=== PATIENT | female | born 1980 | race Caucasian/White ===

== ENCOUNTER 2016-11-18 21:49 | Emergency (ER) | payer SELFPAY ==
[~2016-11-18] VITALS: Ht 157.5 cm; Wt 73.0 kg
[2016-11-18 21:59] VITALS: Ht 157.5 cm; Wt 73.0 kg
[2016-11-18] MEDS ORDERED: SOD CHLORIDE 0.9% 1,000 ML IV STA (22:41)
[2016-11-18] MEDS ORDERED: ACETAMINOPHEN 325 MG TAB PO STA (22:41)
[2016-11-18 23:28] LABS: ADD SCAN DIFF NO
[2016-11-18 23:32] LABS: BASOPHIL # 0.1 10^3/ul (0.0-0.1); BASOPHILS % 0.4 % (0.0-2.0); EOSINOPHILS # 0.2 10^3/ul (0.0-0.5); EOSINOPHILS % 1.3 % (0.0-7.0); LYMPHOCYTES # 2.5 10^3/ul (0.8-2.9); LYMPHOCYTES % 20.3 % (15.0-51.0); MEAN CORPUSCULAR HEMOGLOBIN 28.8 pg (29.0-33.0); MEAN CORPUSCULAR HGB CONC 32.6 g/dl (32.0-37.0); MEAN CORPUSCULAR VOLUME 88.5 fl (82.0-101.0); MEAN PLATELET VOLUME 11.4 fl (7.4-10.4); MONOCYTES % 7.9 % (0.0-11.0); NEUTROPHIL # 8.5 10^3/ul (1.6-7.5); NEUTROPHILS % 69.9 % (39.0-77.0); PLATELET COUNT 272 10^3/UL (140-415); RED BLOOD COUNT 4.86 10^6/ul (4.20-5.40); WHITE BLOOD COUNT 12.2 10^3/ul (4.8-10.8)
[2016-11-18 23:41] LABS: ADD UMIC YES; URINE BILIRUBIN (Dip) NEGATIVE (NEGATIVE); URINE BLOOD (Dip) 3+ (NEGATIVE); URINE COLOR YELLOW (YELLOW); URINE GLUCOSE (Dip) NEGATIVE (NEGATIVE); URINE KETONES (Dip) NEGATIVE (NEGATIVE); URINE LEUKOCYTE ESTERASE (Dip) NEGATIVE (NEGATIVE); URINE NITRITE (Dip) NEGATIVE (NEGATIVE); URINE TOTAL PROTEIN (Dip) NEGATIVE (NEGATIVE); URINE UROBILINOGEN (Dip) 0.2 E.U./dL (0.1-1.0)
[2016-11-18 23:54] LABS: BACTERIA,URINE MANY; SQUAMOUS EPITHELIAL CELL,UR MODERATE
--- NOTE | 2016-11-19 00:21 | RADRPT ---
PROCEDURE: Obstetrical ultrasound. CLINICAL INDICATION: Vaginal bleeding. TECHNIQUE: Multiple sonographic images of the pelvis were obtained with transabdominal technique. Images were obtained with calix scale and color Doppler. COMPARISON: No prior studies are available for comparison. FINDINGS: There are two uterine fibroids measuring 2.8 x 2.9 x 2.9 cm and 1.5 x 1.5 x 1.6 cm. There is an intr auterine gestational sac with a pole identified. heart tones of 139 beats per minute are identified. The crown-rump length averages 2.12 cm, compatible with 8 weeks and 5 days. The m jasmin sac diameter averages 3.13 cm, compatible with 8 weeks and 1 day. A yolk sac is identified. Ther e is a small subchorionic collection is identified. There is no pelvic free fluid. Bilateral ovaries are not visualized. There is no suspicious adnexal mass identified. IMPRESSION: Single live intrauterine with an estimated gestational age of 8 weeks and 3 days, with an ultrasound JAMISON of 06/27/2017. Small subchorionic hemorrhage. Uterine fibroids. Bilateral ovaries not visualized. .Dick Fernandez MD, MD Date Time Electronically viewed and signed by .Dick Fernandez MD, MD on 11/19/2016 00:21 .T/
[2016-11-19] MEDS ORDERED: ACET325T33 PO (00:27)
[2016-11-19 00:35] VITALS: BP 112/62; PULSE 72; RESP 18; TEMP 98.6
--- NOTE | 2016-11-19 02:08 | ERD ---
ER Documentation Chief Complaint Date/Time DATE: 11/19/16 TIME: 02:06 Chief Complaint vaginal bleeding x 1 hour, states 9 weeks HPI This patient is a 36-year-old female who is currently 9 weeks presenting to the emergency department for vaginal bleeding for the past hour. The patient states she had mild spotting on 1 pad. Last sexual activity was 1 month ago. 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 Additionally the patient has had suprapubic pain bilaterally but worse on the right side. She states his pain is mild. The patient has had no fevers , chills, nausea, vomiting, diarrhea, or other symptoms at this time. The patient has taken no medication for relief of symptoms. ROS All systems reviewed and are negative except as per history of present illness. Medications Home Meds Active Scripts Acetaminophen* (Tylenol*) 325 Mg Tablet, 2 TAB PO Q6 Y for PAIN AND OR ELEVATED TEMP, #20 TAB Prov:CHRISTIE SANDERSON PA-C 11/19/16 Allergies Allergies: Coded Allergies: No Known Drug Allergies (Verified Allergy, Unknown, 11/18/16) PMhx/Soc Medical and Surgical Hx: pt denies Medical Hx, pt denies Surgical Hx Hx Alcohol Use: No Hx Substance Use: No Hx Tobacco Use: No Smoking Status: Never smoker FmHx Noncontributory for chief complaint Physical Exam Vitals Vital Signs Date Time Temp Pulse Resp B/P Pulse Ox O2 Delivery O2 Flow Rate FiO2 11/19/16 00:35 98.6 72 18 112/62 100 Room Air 11/18/16 21:59 98.5 72 20 124/68 100 Physical Exam Const: The patient is resting comfortably in no acute distress. Head: Atraumatic Eyes: Normal Conjunctiva ENT: Normal External Ears, Nose and Mouth. Neck: Full range of motion..~ No meningismus. Resp: Clear to auscultation bilaterally Cardio: Regular rate and rhythm, no murmurs Abd: Soft, non tender, non distended. Normal bowel sounds. Gravid abdomen. : There is some mild suprapubic tenderness palpation on the right side. There is no CVA tenderness. Skin: No petechiae or rashes Back: No midline or flank tenderness Ext: No cyanosis, or edema Neur: Awake and alert Psych: Normal Mood and Affect Result Diagram: 11/18/16 2320 Results 24 hrs Laboratory Tests Test 11/18/16 22:55 11/18/16 23:20 Urine Color YELLOW Urine Clarity CLEAR Urine pH 6.0 Urine Specific Paisley 1.020 Urine Ketones NEGATIVE Urine Nitrite NEGATIVE Urine Bilirubin NEGATIVE Urine Urobilinogen 0.2 E.U./dL Urine Leukocyte Esterase NEGATIVE Urine Microscopic RBC 2-5/HPF Urine Microscopic WBC 0-2/HPF Urine Squamous Epithelial Cells MODERATE Urine Bacteria MANY Urine Hemoglobin 3+ Urine Glucose NEGATIVE% Urine Total Protein NEGATIVE White Blood Count 12.210^3/ul Red Blood Count 4.8610^6/ul Hemoglobin 14.0g/dl Hematocrit 43.0% Mean Corpuscular Volume 88.5fl Mean Corpuscular Hemoglobin 28.8pg Mean Corpuscular Hemoglobin Concent 32.6g/dl Red Cell Distribution Width 12.0% Platelet Count 47478^3/UL Mean Platelet Volume 11.4fl Neutrophils % 69.9% Lymphocytes % 20.3% Monocytes % 7.9% Eosinophils % 1.3% Basophils % 0.4% Nucleated Red Blood Cells % 0.0/100WBC Neutrophils # 8.510^3/ul Lymphocytes # 2.510^3/ul Monocytes # 1.010^3/ul Eosinophils # 0.210^3/ul Basophils # 0.110^3/ul Nucleated Red Blood Cells # 0.010^3/ul Beta HCG, Quantitative 10548.0mIU/ml Current Medications Medications (Trade) Dose Ordered Sig/Rosanna Route PRN Reason Start Time Stop Time Status Last Admin Dose Admin Sodium Chloride (NS) 1,000 ml @ 1,000 mls/hr Q1H STAT IV 11/18/16 22:41 11/18/16 23:40 DC 11/18/16 23:26 Acetaminophen (Tylenol Tab) 650 mg ONCE STAT PO 11/18/16 22:41 11/18/16 22:43 DC Procedures/[facility] EMERGENCY DEPARTMENT COURSE / MEDICAL DECISION MAKING: This is a 36-year-old female who comes to the emergency room secondary to complaints of suprapubic pain and vaginal bleeding. The patient was given p.o. Tylenol and IV fluids in the department. On re- evaluation, the patient was feeling improved. Lab results reviewed and showed no signs of anemia or leukocytosis. Radiology: PROCEDURE: Obstetrical ultrasound. CLINICAL INDICATION: Vaginal bleeding. TECHNIQUE: Multiple sonographic images of the pelvis were obtained with transabdominal technique. Images were obtained with calix scale and color Doppler. COMPARISON: No prior studies are available for comparison. FINDINGS: There are two uterine fibroids measuring 2.8 x 2.9 x 2.9 cm and 1.5 x 1.5 x 1.6 cm. There is an intrauterine gestational sac with a pole identified. heart tones of 139 beats per minute are identified. The crown-rump length averages 2.12 cm, compatible with 8 weeks and 5 days. The mean sac diameter averages 3.13 cm, compatible with 8 weeks and 1 day. A yolk sac is identified. There is a small subchorionic collection is identified. There is no pelvic free fluid. Bilateral ovaries are not visualized. There is no suspicious adnexal mass identified. IMPRESSION: Single live intrauterine with an estimated gestational age of 8 weeks and 3 days, with an ultrasound JAMISON of 06/27/2017. Small subchorionic hemorrhage. Uterine fibroids. Bilateral ovaries not visualized. .Dick Fernandez MD MD Date Time Electronically viewed and signed by .Dick Feranndez MD, MD on 11/19/2016 00:21 .T/ CC: CHRISTIE SANDERSON PA-C The primary diagnosis is vaginal bleeding and patient at less than 20 weeks gestation. I have low suspicion for ovarian torsion, ectopic , acute abdomen, septicemia, or other emergent conditions at this time. Discharge: I have discussed the lab results and diagnostic findings with the patient and answered any questions or concerns. The patient was discharged with a prescription for Tylenol. The patient was advised to followup with their PMD in 1-2 days and to return to the Emergency Department if there are any new or worsening symptoms. The patient understood and agreed with the diagnosis, treatment and plan. The patient is stable for discharge at this time. Departure Diagnosis: Primary Impression: Vaginal bleeding in patient at less than 20 weeks ges... Condition: Fair Patient Instructions: Bleeding During Early Referrals: HEDY PARISH MD (PCP) [facility] Usted se ashby hecho un examen mdico de control que le indica que no est en karen condicin que requiera tratamiento urgente en el Departamento de Emergencia. Un estudio ms profundo y el tratamiento de erazo condicin pueden esperar sin ningn riesgo hasta que usted sea atendida/o en el consultorio de erazo mdico o karen cl valerie. Es responsabilidad suya arreglar karen agustín para el seguimiento del kelli. MANEJO DE CONDICIONES NO URGENTES EN EL FUTURO 1) Si usted tiene un mdico de atencin primaria: Usted debera llamar a erazo mdico de atencin primaria antes de venir al departamento de emergencia. Despus de las horas de consultorio, erzao doctor o erazo asociado/a est disponible por telfono. El mdico o enfermero de brian en el servicio telefnico puede asesorarle por narda medio para atender el problema, o kelli contrario se puede programar karen agustín. 2) Si usted no tiene un mdico de atencin primaria: Llame al mdico o clnica de referencia que aparece abajo steve las horas de consultorio para hacer karen agustín para que le vean. CLINICAS: [facility] [phone] [facility] [phone] [facility] [phone] [facility] [phone] [facility] [phone] [facility]. [phone] [address] Additional Instructions: No mas mejor en 2-3 virk, regresar. Mas peor en 24 horas, regresear rapidamente. Ir a doctor primario in 5-7 virk. Usar instrucciones cuando jeyson medicamento. CHRISTIE SANDERSON PA-C Nov 19, 2016 02:08
== END 2016-11-19 00:35 | disposition home or self-care (01) ==
LOC: FTE 21:49
DX: O20.9 Hemorrhage in early pregnancy, unspecified (principal); Z3A.08 8 weeks gestation of pregnancy
CPT/HCPCS: 76801; 81001; 81003; 84702; 85025; 86900; 86901; J7030; 36415; 96360

== ENCOUNTER → 2017-03-26 | Outpatient (CLI) | payer MEDICAID ==
[~2017-03-26] MED LIST: ACET325T33 PO
--- NOTE | 2017-03-30 14:02 | RADRPT ---
PROCEDURE: XR Chest. CLINICAL INDICATION: Positive PPD TECHNIQUE: PA and lateral views of the chest were obtained COMPARISON: None FINDINGS: No pleural effusion or pneumothorax. No consolidation. Normal cardiomediastinal silhouette. No acute osseous abnormality. IMPRESSION: No acute cardiopulmonary disease. No radiographic evidence of intrathoracic tuberculosis. RPTAT: QQ Floridalma Nuñez Physician Date Time Electronically viewed and signed by Floridalma Nuñez Physician on 03/26/2017 16:07 /
== END | disposition home or self-care (01) ==
LOC: RAD 13:53
PROVIDERS: ATTEND Obstetrics & Gynecology
DX: O26.899 Other specified pregnancy related conditions, unspecified trimester (principal); Z3A.00 Weeks of gestation of pregnancy not specified; R76.11 Nonspecific reaction to tuberculin skin test without active tuberculosis
CPT/HCPCS: 71020

== ENCOUNTER 2017-05-28 03:45 | Inpatient (IN) | payer MEDICAID ==
[~2017-05-28] VITALS: Ht 154.9 cm; Wt 88.7 kg
[2017-05-28 04:17] VITALS: Ht 154.9 cm; Wt 88.7 kg
[2017-05-28 04:19] VITALS: BP 123/78; PULSE 77; RESP 18
[2017-05-28] MEDS ORDERED: PREN1TAB17 PO (04:22)
[2017-05-28] MEDS ORDERED: FERR325T5 PO (04:22)
[2017-05-28] MEDS ORDERED: LACTATED RINGER'S 1,000 ML IV SCH (05:26)
--- NOTE | 2017-05-28 05:27 | RADRPT ---
PROCEDURE: US OB. CLINICAL INDICATION: Size and dates TECHNIQUE: Multiple sonographic images of the pelvis were obtained. Transabdominal imaging only w as performed. The images were reviewed on a PACS workstation. COMPARISON: No prior studies are available for comparison. FINDINGS: There is a single live intrauterine gestation. Cardiac activity is present with 143 beats per minut e. position is breech. Measurements were made in order to determine age. The results are as follows: BPD = 9.05 cm HC = 32.61 cm AC = 32.37 cm FL = 7.16 cm. Estimated gestational age of approximately 36 weeks 5 days. The estimated date of delivery is 06/20/2017. The EFW = 2955 g, 69 %ile. The placenta is posterior. There is no evidence for an abruption or placenta previa. There are no adnexal masses. IMPRESSION: 1. Single live intrauterine gestation of approximately 36 weeks 5 days, by ultrasound criteria. 2. The estimated date of delivery is 06/20/2017. 3. The estimated weight is 2955 g, 69 %ile. 4. Breech presentation. RPTAT: HH .Felipa Robin MD, Date Time Electronically viewed and signed by .Felipa Robin MD, on 05/28/2017 05:26 .G/
[2017-05-28] MEDS ORDERED: MISOPROSTOL 200 MCG TAB PR PRN ×2 (05:30→09:00)
[2017-05-28] MEDS ORDERED: CARBOPROST 250 MCG INJ IM PRN ×2 (05:30→09:00)
[2017-05-28] MEDS ORDERED: OXYTOCIN 30 UNITS/LR 500 ML IV SCH (05:30)
[2017-05-28] MEDS ORDERED: OXYTOCIN 30 UNITS/LR 500 ML IV PRN ×2 (05:30→09:00)
[2017-05-28] MEDS ORDERED: CEFAZOLIN 2 GM/50 ML (PMX) 50 ML IV SCH (05:30)
[2017-05-28] MEDS ORDERED: METHYLERGONOVINE 0.2 MG INJ IM PRN ×2 (05:30→09:00)
[2017-05-28] MEDS ORDERED: BETAMET NA PHOS/AC(6 MG/ML) 5ML INJ ONE (06:01)
[2017-05-28 06:24] LABS: BASOPHILS % 0.3 % (0.0-2.0); EOSINOPHILS # 0.2 10^3/ul (0.0-0.5); EOSINOPHILS % 1.4 % (0.0-7.0); HEMATOCRIT 37.1 % (37.0-47.0); HEMOGLOBIN 12.3 g/dl (12.0-16.0); LYMPHOCYTES % 18.4 % (15.0-51.0); MEAN CORPUSCULAR HEMOGLOBIN 28.7 pg (29.0-33.0); MEAN CORPUSCULAR HGB CONC 33.2 g/dl (32.0-37.0); MEAN CORPUSCULAR VOLUME 86.5 fl (82.0-101.0); MEAN PLATELET VOLUME 11.2 fl (7.4-10.4); MONOCYTE # 0.7 10^3/ul (0.3-0.9); MONOCYTES % 6.5 % (0.0-11.0); NEUTROPHIL # 7.9 10^3/ul (1.6-7.5); PLATELET COUNT 247 10^3/UL (140-415); RED BLOOD COUNT 4.29 10^6/ul (4.20-5.40); RED CELL DISTRIBUTION WIDTH 13.1 % (11.5-14.5); WHITE BLOOD COUNT 10.8 10^3/ul (4.8-10.8)
[2017-05-28] MEDS ORDERED: BETAMET NA PHOS/AC(6 MG/ML) 5ML INJ IM SCH (06:30)
[2017-05-28] MEDS ORDERED: LACTATED RINGER'S 1,000 ML IV ONE (07:18)
[2017-05-28] MEDS ORDERED: ONDANSETRON 4 MG INJ ONE (07:20)
[2017-05-28] MEDS ORDERED: CITRIC ACID/NA CITRATE 30 ML CUP ONE (07:20)
[2017-05-28 07:27] LABS: INR 0.9; PROTIME 12.1 Sec (12.2-14.2); PT RATIO 0.9
[2017-05-28] MEDS ORDERED: CITRIC ACID/NA CITRATE 30 ML CUP PO ONE (07:30)
[2017-05-28] MEDS ORDERED: ONDANSETRON 4 MG INJ IV ONE (07:30)
[2017-05-28] MEDS ORDERED: morphine SULFATE/PF (10 MG/10 ML) INJ ONE (07:40)
[2017-05-28] MEDS ORDERED: FENTAnyl 50 MCG/ML VIAL ONE (07:40)
[2017-05-28] MEDS ORDERED: METOCLOPRAMIDE 10 MG INJ ONE (07:57)
[2017-05-28] MEDS ORDERED: KETOROLAC 30 MG INJ IV PRN (08:30)
[2017-05-28] MEDS ORDERED: ONDANSETRON 4 MG INJ IV PRN (08:30)
[2017-05-28] MEDS ORDERED: DIPHENHYDRAMINE 50 MG INJ IV PRN (08:30)
[2017-05-28] MEDS ORDERED: NALOXONE (0.4 MG/ML) INJ IV PRN (08:30)
[2017-05-28] MEDS ORDERED: TRIMETHOBENZAMIDE 100 MG/ML VIAL IM PRN (08:30)
[2017-05-28] MEDS ORDERED: morphine 2 MG INJ IV PRN (08:30)
[2017-05-28] MEDS ORDERED: morphine 4 MG/ML VIAL IV PRN (08:30)
[2017-05-28] MEDS ORDERED: NALBUPHINE HCL (10 MG/1 ML) INJ IV PRN (08:30)
[2017-05-28] MEDS: LACTATED RINGER'S 1,000 ML IV SCH ×2 (08:51→16:51)
[2017-05-28] MEDS ORDERED: LANOLIN 7 GM TUBE TOP PRN (09:00)
[2017-05-28] MEDS ORDERED: SENNA/DOCUSATE NA (8.6MG/50MG) TAB PO PRN (09:00)
[2017-05-28] MEDS ORDERED: HYDROCODONE/APAP (5/325) TAB PO PRN ×2 (09:00)
--- NOTE | 2017-05-28 09:06 | HP ---
Date/Time of Note Date/Time of Note DATE: 05/28/17 TIME: 08:58 OB - History Hx of Present Free Text/Dictation 36 y.o. G1 with an IUP at 35w 6d came in due to spontaneous rupture of membranes and the baby was found to be a breech presentation so she was prepared for . Chief Complaint: SROM. Estimated Due Date: Jun 26, 2017 : 1 Para: 0 Care: Good Care Ultrasounds: Normal mid trimester US Obstetrical Complications: None Medical Complications: None Past Family/Social History * Past Medical, Surgical, Family and Obstetric Histories reviewed from chart. Blood Type: B+ Rubella: unknown RPR/VDRL: Negative GBS Status: Unknown HBsAG: Negative OB Admission Exam Vital Signs Vital Signs Vital Signs Date Time Temp Pulse Resp B/P Pulse Ox O2 Delivery O2 Flow Rate FiO2 05/28/17 04:19 99.0 77 18 123/78 Room Air Physical Exam HEENT: WNL Heart: Rhythm Normal Lungs: Clear Abdomen: WNL Extremities: Normal Reflexes: Normal Cervical Dilatation: 2cm Effacement: 25% Station: Ballotable Membranes: Ruptured Amniotic Fluid: Clear Heart Rate: 140's Accelerations: Accelerations Present Decelerations: No Decelerations Varibility: Moderate Contractions on Admission: >10 Minutes Apart Last 72 hours Lab Results CBC & BMP 05/28/17 06:00 OB Assessment/Plan Reason for admission: rupture of membranes Other Assessment: Breech Plan: Section ROLAND KO MD May 28, 2017 09:06
--- NOTE | 2017-05-28 09:21 | OPR ---
Operative Report Planned Procedure Procedure date May 28, 2017 Procedure(s) Primary Performed by see signature line Assisting provider: ANTONIO NAIDU MD Anesthesiologist: CHEIKH KELLOGG MD Pre-procedure diagnosis IUP at 35w 6d. Spontaneous rupture of membranes. Breech Anesthesia Type: spinal Procedure Description Under satisfactory spinal anesthesia, the patient was prepped and draped and placed in the usual sterile fashion in a supine position, tilted to the left. Pfannenstiel incision was made, carried through the subcutaneous tissue. Bleeders brought under control with electrocautery. Fascia incised to the length of the incision. Rectus muscles from the fascia, divided midline. Peritoneum exposed, entered using the surgeon's fingers. Bladder flap was developed. Transverse incision was made in the lower segment of the uterus. Amniotic sac ruptured. Clear amniotic fluid noted. The baby's feet were delivered first and then with gentle fundal pressure the rest of the baby was easily delivered. The mouth and nares were bulb suctioned and then the baby was brought to the team at the [facility]. The placenta was delivered manually intact. The uterus was externalized and uterine cavity was cleaned with a dry lap and was wrapped in a moist lap. Uterus closed in 2 layers using #1 chromic suture in continuous fashion with excellent hemostasis. Peritoneal cavity irrigated with warm saline. The uterus was replaced into the abdomen and the uterine incision was examined again and noted to be dry. Abdominal peritoneum closed with 2-0 chromic continuously. Rectus muscle approximated with the same suture. Fascia closed with 0 chromic, and skin closed with 3-0 Monocryl. Estimated blood loss 500 mL. Urine was clear. Post-Procedure Post-procedure diagnosis Same. Findings: Viable baby boy weighing 2850 grams or 6# 5 oz, 18" long, and with Apgars of 9/ 9. Estimated blood loss: other (500) Specimen(s): no Grafts/Implants: no Complication(s): no Pt Condition post procedure: stable Disposition: PACU Physician Certification I, the undersigned physician, hereby certify that I have discussed the procedure described in this consent form with this patient (or the patient's legal dairy supplies sales representative), including: * The risk and benefits of the procedure; * Any adverse reactions that may reasonably be expected to occur; * Any alternative efficacious methods of treatment which may be medically viable ; * The potential problems that may occur during recuperation; * Potential for blood transfusion and associated risks/benefits; and * Any research or economic interest I may have regarding this treatment. I further certify that the patient/legally responsible person was encouraged to ask question and that all questions were answered. ROLAND KO MD May 28, 2017 09:21
[2017-05-28 12:25] VITALS: BP 125/70; PULSE 86; RESP 18
[2017-05-28 12:43] LABS: BARBITURATES Negative (NEGATIVE); BENZODIAZEPINES Negative (NEGATIVE); CANNABINOIDS Negative (NEGATIVE); COCAINE Negative (NEGATIVE); OPIATES Negative (NEGATIVE)
[2017-05-28 16:00] VITALS: BP 120/66; PULSE 84; RESP 18
[2017-05-28] MEDS ORDERED: MAGNESIUM HYDROXIDE 30ML CUP PO PRN (16:00)
[2017-05-28] MEDS ORDERED: SENNA TAB PO PRN (16:00)
[2017-05-28 20:00] VITALS: BP 115/65; PULSE 71; RESP 16
[2017-05-28] MEDS: CLINDAMYCIN 300 MG CAP PO SCH (21:11)
[2017-05-29 00:45] VITALS: BP 107/57; PULSE 76; RESP 16
[2017-05-29] MEDS: LACTATED RINGER'S 1,000 ML IV SCH ×3 (02:43→16:51)
[2017-05-29] MEDS: CLINDAMYCIN 300 MG CAP PO SCH ×4 (03:38→17:45)
[2017-05-29 04:20] VITALS: BP 100/56; PULSE 87; RESP 16
[2017-05-29] MEDS ORDERED: HYDROCODONE/APAP (5/325) TAB PO PRN (08:00)
[2017-05-29 08:15] VITALS: BP 103/73; PULSE 81; RESP 16
[2017-05-29] MEDS: IBUPROFEN 800 MG TAB PO SCH ×3 (08:50→21:07)
[2017-05-29 10:08] LABS: BASOPHILS % 0.1 % (0.0-2.0); HEMATOCRIT 31.2 % (37.0-47.0); HEMOGLOBIN 10.6 g/dl (12.0-16.0); LYMPHOCYTES # 1.8 10^3/ul (0.8-2.9); LYMPHOCYTES % 13.1 % (15.0-51.0); MEAN CORPUSCULAR HEMOGLOBIN 29.4 pg (29.0-33.0); MEAN CORPUSCULAR VOLUME 86.7 fl (82.0-101.0); MEAN PLATELET VOLUME 11.3 fl (7.4-10.4); MONOCYTES % 7.5 % (0.0-11.0); NEUTROPHIL # 10.6 10^3/ul (1.6-7.5); NEUTROPHILS % 78.9 % (39.0-77.0); PLATELET COUNT 221 10^3/UL (140-415); RED CELL DISTRIBUTION WIDTH 13.2 % (11.5-14.5); WHITE BLOOD COUNT 13.4 10^3/ul (4.8-10.8)
[2017-05-29] MEDS: HYDROCODONE/APAP (5/325) TAB PO PRN (10:12)
[2017-05-29] MEDS ORDERED: BISACODYL 10 MG SUPP PR ONE (11:00)
--- NOTE | 2017-05-29 15:32 | PN ---
Date/Time of Note Date/Time of Note DATE: 05/29/17 TIME: 15:30 Assessment/Plan VTE Prophylaxis VTE Prophylaxis Intervention: ambulation Lines/Catheters IV Catheter Type (from Nrsg): Peripheral IV Assessment/Plan Assessment/Plan Postop day 1 Status post We will advance diet and ambulate patient Continue to monitor vital signs Fernando CBC next day Continue with supportive care Subjective 24 Hr Interval Summary No bowel movement Passing flatus Constitutional: BM, ambulates, flatus, improved, no complaints, urine output Pain Control: well controlled Exam/Review of Systems Vital Signs Vitals Vital Signs Date Time Temp Pulse Resp B/P Pulse Ox O2 Delivery O2 Flow Rate FiO2 05/29/17 08:15 98.8 81 16 103/73 Room Air 05/29/17 03:40 96 21 Intake and Output 05/28/17 05/28/17 05/29/17 15:00 23:00 07:00 Intake Total 1100 ml 0 ml Output Total 1400 ml 1100 ml Balance -300 ml -1100 ml Exam Free Text/Dictation Abdomen is soft and not distended Abdomen is slightly tender around incision Incision is covered Constitutional: alert, oriented, well developed Psych: nl mood/affect, no complaints Head: atraumatic, normocephalic Eyes: EOMI, nl conjunctiva, nl lids, nl sclera ENMT: mucosa pink and moist, nl external ears & nose, nl lips & teeth, nl nasal mucosa & septum Neck: non-tender, supple Respiratory: clear to auscultation, normal air movement Cardiovascular: nl pulses, regular rate and rhythm Gastrointestinal: nl liver, spleen, non-tender, soft Musculoskeletal: nl extremities to inspection, nl gait and stance Extremities: normal pulses Neurological: RETORT KILN BURNER II-XII intact, nl mental status, nl speech, nl strength Skin: nl turgor, rash or lesions Lymph: nl lymph nodes Results Result Diagram: 05/29/17 0947 HEDY PARISH MD May 29, 2017 15:32
[2017-05-29 16:30] VITALS: BP 106/59; PULSE 77; RESP 18
[2017-05-29 20:00] VITALS: BP 110/82; PULSE 82; RESP 16
[2017-05-30] MEDS: CLINDAMYCIN 300 MG CAP PO SCH ×4 (00:37→17:37)
[2017-05-30] MEDS: HYDROCODONE/APAP (5/325) TAB PO PRN (00:38)
[2017-05-30] MEDS: LACTATED RINGER'S 1,000 ML IV SCH (00:51)
[2017-05-30 04:45] VITALS: BP 118/81; PULSE 80; RESP 20
[2017-05-30] MEDS: IBUPROFEN 800 MG TAB PO SCH ×3 (05:38→21:53)
[2017-05-30 07:40] VITALS: BP 107/62; PULSE 72; RESP 19
[2017-05-30 11:40] LABS: BASOPHILS % 0.4 % (0.0-2.0); EOSINOPHILS # 0.1 10^3/ul (0.0-0.5); EOSINOPHILS % 1.1 % (0.0-7.0); HEMOGLOBIN 10.8 g/dl (12.0-16.0); LYMPHOCYTES # 2.1 10^3/ul (0.8-2.9); LYMPHOCYTES % 18.9 % (15.0-51.0); MEAN CORPUSCULAR HEMOGLOBIN 28.6 pg (29.0-33.0); MEAN CORPUSCULAR HGB CONC 31.8 g/dl (32.0-37.0); MEAN CORPUSCULAR VOLUME 89.9 fl (82.0-101.0); MEAN PLATELET VOLUME 11.3 fl (7.4-10.4); MONOCYTE # 0.9 10^3/ul (0.3-0.9); MONOCYTES % 7.7 % (0.0-11.0); NEUTROPHIL # 7.9 10^3/ul (1.6-7.5); NEUTROPHILS % 71.4 % (39.0-77.0); PLATELET COUNT 239 10^3/UL (140-415); RED BLOOD COUNT 3.78 10^6/ul (4.20-5.40); RED CELL DISTRIBUTION WIDTH 13.5 % (11.5-14.5)
[2017-05-30 16:02] VITALS: BP 144/41; RESP 18
--- NOTE | 2017-05-30 18:09 | DS ---
Date/Time of Note Date/Time of Note DATE: 05/30/17 TIME: 18:07 Discharge Summary Admission/Discharge Info Admit Date/Time May 28, 2017 at 05:03 Discharge Date/Time May 31, 2017 Discharge Diagnosis Status post Patient Condition: Good Procedures Primary Hx of Present Illness 36-year-old female underwent primary section because of breech presentation at 35+ weeks and spontaneous rupture of membranes Hospital Course Uncomplicated Home Meds Active Scripts Acetaminophen* (Tylenol*) 325 Mg Tablet, 2 TAB PO Q6 Y for PAIN AND OR ELEVATED TEMP, #20 TAB Prov:CHRISTIE SANDERSON PA-C 11/19/16 Reported Medications Ferrous Sulfate (Ferrous Sulfate) 325 Mg Tablet., 325 MG PO DAILY 05/28/17 Vit-Iron Fumarate-FA ( Tablet) 1 Each Tablet, 1 TAB PO DAILY, TAB 05/28/17 Follow-up Plan 3 4 days in clinic for staple removal Primary Care Provider Care Physician No Primary Time spent on discharge: > 30 minutes Pending Labs Laboratory Tests Test 05/30/17 10:41 White Blood Count 11.010^3/ul (4.8-10.8) Red Blood Count 3.7810^6/ul (4.20-5.40) Hemoglobin 10.8g/dl (12.0-16.0) Hematocrit 34.0% (37.0-47.0) Mean Corpuscular Volume 89.9fl (82.0-101.0) Mean Corpuscular Hemoglobin 28.6pg (29.0-33.0) Mean Corpuscular Hemoglobin Concent 31.8g/dl (32.0-37.0) Red Cell Distribution Width 13.5% (11.5-14.5) Platelet Count 41273^3/UL (140-415) Mean Platelet Volume 11.3fl (7.4-10.4) Neutrophils % 71.4% (39.0-77.0) Lymphocytes % 18.9% (15.0-51.0) Monocytes % 7.7% (0.0-11.0) Eosinophils % 1.1% (0.0-7.0) Basophils % 0.4% (0.0-2.0) Nucleated Red Blood Cells % 0.0/100WBC (0.0-0.0) Neutrophils # 7.910^3/ul (1.6-7.5) Lymphocytes # 2.110^3/ul (0.8-2.9) Monocytes # 0.910^3/ul (0.3-0.9) Eosinophils # 0.110^3/ul (0.0-0.5) Basophils # 0.010^3/ul (0.0-0.1) Nucleated Red Blood Cells # 0.010^3/ul (0.0-0.0) HEDY PARISH MD May 30, 2017 18:08
--- NOTE | 2017-05-30 18:10 | DS ---
Date/Time of Note Date/Time of Note Home following the DATE: 05/30/17 TIME: 18:09 Obstetrical Discharge Record Final Diagnosis Final Diagnosis: Term delivered Other Final Diagnosis Status post section Section Section: Primary Primary Indication Breech at 35 weeks with spontaneous rupture of membrane Condition on Discharge Physical Assessment Last Vitals: See nurse's note Voiding: Yes Bowel Movement: Yes Breast: Soft, non-tender, Filling Fundus: Firm Abdomen and Incision: Soft bowel sounds present not distended Incision is healing well without induration or erythema Calf Tenderness: No Patient Condition: Good HEDY PARISH MD May 30, 2017 18:10
--- NOTE | 2017-05-30 18:12 | PD.PPDC ---
RADIO ARTIST Discharge Instruction Provider Information Physician Information 36-year-old female had primary section Diagnosis Final Diagnosis: Status post delivery Condition Patient Condition: Good Diet Diet: Resume Regular Diet Activity/Restrictions Activity: December Shower Restrictions: No Exercising No Lifting Nothing in the Vagina Return to Work or School: Jul 30, 2017 Follow-up Follow-up with Physician: 2, Week/Weeks (In clinic for follow-up) Return to clinic for BEHAVIOR SUPPORT SPECIALIST Instructions: Fever greater than 101 Chills Worsening abdominal pain OB Instructions: Breast Tenderness Depression Surgical Instructions: Incisional Drainage Incisional Redness HEDY PARISH MD May 30, 2017 18:12
[2017-05-30] MEDS ORDERED: IBUP800T25 PO (18:13)
[2017-05-30 20:00] VITALS: BP 112/64; PULSE 76; RESP 18
[2017-05-31] MEDS: CLINDAMYCIN 300 MG CAP PO SCH ×3 (00:12→11:53)
[2017-05-31 04:00] VITALS: BP 114/71; PULSE 68; RESP 18
[2017-05-31] MEDS: IBUPROFEN 800 MG TAB PO SCH ×2 (05:34→13:28)
[2017-05-31 07:40] VITALS: BP 126/82; PULSE 67; RESP 18
[2017-05-31] MEDS ORDERED: DIPHTH/TET/ACEL PERTUSS (ADULT) 0.5 ML VIAL IM* ONE (09:00)
== END 2017-05-31 17:58 | disposition home or self-care (01) | DRG 766 ==
LOC: OBT 03:45 → L-D 03:45 → OBT 05:03 → L-D 05:03 → PP1 12:32
PROVIDERS: ADMIT Obstetrics & Gynecology; ATTEND Obstetrics & Gynecology
PROC: 10D00Z1 Extraction of Products of Conception, Low, Open Approach (ICD-10-PCS; principal; 2017-05-28 08:15)
DX: O32.1XX0 Maternal care for breech presentation, not applicable or unspecified (principal); Z37.0 Single live birth; Z3A.35 35 weeks gestation of pregnancy
CPT/HCPCS: 76815; 80307; 85025; 85610; 85730; 86592; 86850; 86900; 86901; 87340; 90715; 94760; 96372; 99464; G0463; J0690; J0702; J2274; J2405; J2590; J2765; J3010; J7120

== ENCOUNTER 2017-10-13 03:46 | Emergency (ER) | END 2017-10-13 05:55 | disposition home or self-care (01) ==